=== PATIENT | female | born 1955 | race African-American/Black ===

== ENCOUNTER → 2020-09-01 | Outpatient (CLI) | payer BC ==
[2016-08-03 05:36] VITALS: BP 127/74
[~2020-09-01] MED LIST: ATOR20TA58 PO; FAMO-63 PO; FENO145T3 PO; LISI10TA2 PO; METH4TAB2 PO; [UNRECOGNIZED DRUG - REMARK] SUBCUT
--- NOTE | 2020-09-01 16:03 | RAD ---
Examination: MG BILAT SCREEN+BRADLEY History: Reason: SCREENING MAMMOGRAM 3D / Spl. Instructions: / History: Comparison/Correlation: 01/05/2014, 04/09/2016 Technique: MLO and CC digital tomosynthesis (3D) images obtained. Radiologist reviewed these images on dedicated workstation. Findings: Breast Tissue Density B : There are scattered areas of fibroglandular density. There are no dominant masses, suspicious microcalcifications, or architectural distortion. Asymmetry of the far posterior left retroareolar region is seen on the MLO projection located 6 cm from the ni pple. This finding measures up to 0.8 cm and may represent summation of breast parenchyma. Definite c orresponding finding on the prior exams is not delineated. Compression may be limited due to slight d ifferences in positioning however. IMPRESSION: Spot compression imaging of the far posterior left retroareolar region is recommended. Ultrasound may be needed. BI-RADS Category 0: Incomplete: Need additional imaging evaluation. The images were reviewed with computer-aided detection. Patient information is entered into reminder system with a target due date for the next screening [facility]. Mammography is the most sensitive method for finding small breast cancers, but it does not detect the m all and is not a substitute for careful clinical examination. A negative mammogram does not negate a clinically suspicious finding and should not result in delay in biopsying a clinically suspicious a bnormality. "Our facility is accredited by the [employer] Mammography Program." Electronically signed by: El Hewitt MD (09/01/2020 4:01 PM) [id number]
== END ==
LOC: MAMMO 09:23
PROVIDERS: ATTEND Nurse Practitioner Adult Health
DX: Z12.31 Encounter for screening mammogram for malignant neoplasm of breast (principal); Z00.01 Encounter for general adult medical examination with abnormal findings
CPT/HCPCS: 77063; 77067

== ENCOUNTER → 2020-11-15 | Outpatient (CLI) | payer MEDICARE, BC ==
[2016-08-03 05:36] VITALS: BP 127/74
[~2020-11-15] MED LIST changes: +LISI10TA16 PO; -LISI10TA2 PO
--- NOTE | 2020-11-15 17:42 | RAD ---
Examination: 1. Left digital diagnostic mammogram. 2. Limited left breast ultrasound. INDICATION: Screening recall for asymmetry in the posterior left breast COMPARISON: Bilateral mammogram of 09/01/2020 TECHNIQUE: full-field ML view of the left breast was obtained in addition to a lesser extent the fiel d-of-view and slight compression MLO view. Images reviewed with computer-aided detection. Targeted ul trasound of the lateral left breast was subsequently pursued. FINDINGS: Scattered fibroglandular densities. The questioned asymmetry changes configuration in a pattern suggesting benign overlap of fibroglandul ar tissue. Targeted ultrasound of the lateral left breast revealed no sonographic correlate and no suspicious so nographic findings. Benign cyst at the 3:00 position 6 cm from nipple measuring millimeters was incid entally noted. IMPRESSION: Benign findings on left diagnostic breast imaging. No evidence of malignancy BI-RADS Category 2 Benign findings Recommend return to routine screening next due in one year. Patient entered into a reminder system with targeted due date for next mammogram. Electronically signed by: Chris Corral MD (11/15/2020 5:39 PM) [id number]
== END ==
LOC: MAMMO 13:56
PROVIDERS: ATTEND Nurse Practitioner Adult Health
DX: N60.02 Solitary cyst of left breast (principal)
CPT/HCPCS: 76641; 77065